=== PATIENT | male | born 1970 | race Caucasian/White ===

== ENCOUNTER 2019-11-02 20:07 | Inpatient (IN) | payer OTHER ==
[~2019-11-02] VITALS: Ht 185.4 cm; Wt 96.0 kg
[2019-11-02] MEDS ORDERED: PANTOPRAZOLE 80 MG in SODIUM CHLORIDE 0.9% 50 ML IVPB ONE (20:58)
[2019-11-02] MEDS ORDERED: SODIUM CHLORIDE 0.9% 1,000ML IVBOLUS ONE (21:00)
[2019-11-02] MEDS ORDERED: PANTOPRAZOLE 80 MG in SODIUM CHLORIDE 0.9% 100 ML IV SCH (21:15)
[2019-11-02 21:19] LABS: MEAN CORPUSCULAR HEMOGLOBIN 30.5 pg (27.5-34.5); MEAN CORPUSCULAR HGB CONC 32.8 g/dL (33.2-36.2); MEAN PLATELET VOLUME 8.3 fL (7.4-10.4); PLATELET COUNT 379 x10^3/uL (130-400); RED BLOOD COUNT 4.82 x10^6/uL (4.38-5.82); RED CELL DISTRIBUTION WIDTH 13.7 % (9.4-14.8)
[2019-11-02 21:29] LABS: INTERNATIONAL NORMALIZED RATIO 0.98 (0.93-1.1); PROTHROMBIN TIME 10.4 Seconds (9.6-11.5)
[2019-11-02 21:30] LABS: ALANINE AMINOTRANSFERASE 38 U/L (12-78); ALBUMIN 3.2 g/dL (3.4-5.0); ANION GAP 10 mmol/L (5-15); CALCIUM 8.6 mg/dL (8.5-10.1); CHLORIDE 107 mmol/L (98-107); CREATININE 1.28 mg/dL (0.7-1.3)
[2019-11-02] MEDS ORDERED: TRANEXAMIC ACID 1,500 MG in SODIUM CHLORIDE 0.9% 100 ML IV ONE (21:30)
[2019-11-02 21:32] LABS: ALKALINE PHOSPHATASE 70 U/L (45-117); BILIRUBIN,TOTAL 0.7 mg/dL (0.2-1.0); TOTAL PROTEIN 6.7 g/dL (6.4-8.2)
[2019-11-02 22:02] LABS: BASOPHILS # (AUTO) 0.02 x10^3/uL (0-0.1); BASOPHILS % (AUTO) 0 % (0-1); EOSINOPHILS # (AUTO) 0.06 x10^3/uL (0-0.4); EOSINOPHILS % (AUTO) 0 % (1-7); LYMPHOCYTES # (AUTO) 1.09 x10^3/uL (1-3.4); LYMPHOCYTES % (AUTO) 5 % (22-44); MD SCAN; MONOCYTES # (AUTO) 0.48 x10^3/uL (0.2-0.8); MONOCYTES % (AUTO) 2 % (2-9); NEUTROPHILS # (AUTO) 19.11 x10^3/uL (1.8-6.8); NEUTROPHILS % (AUTO) 92 % (42-75)
--- NOTE | 2019-11-02 22:09 | NUR ---
PT TO ED WITH C/O RECTAL BLEEDING AND SYNCOPAL EVENT. PT REPORTS HE HAD A COLONOSCOPY THIS MORNING DUE TO FAMILY HX OF COLON CA. PT REPORTS TONIGHT HE WAS ON THE TOILET AND REPORTS A LARGE AMOUNT OF BLOOD FROM THE RECTUM. PT REPORTS SYNCOPAL EVENT AFTER THAT. REPORTS CALLING FRIEND TO TAKE HIM TO THE ER. PT BACK TO ROOM 20 AND PLACED ON GLOBAL VP CREATIVE + CONTENT MARKETING AND CONTINOUS PULSE OX. PT REPORTS HE WAS STARTING TO FEEL BETTER AFTER COMING TO THE ER. BP 90S/60S. EKG COMPLETED AT BEDSIDE AND IV STARTED IN LEFT WRIST. DR. ALSTON TO BEDSIDE TO SEE PT. PT BECAME HYPOTENSIVE AND DIAPHORETIC. PT GIVEN 2L IVF BOLUS AND RAPIDLY TRANSFUSED WITH 2 UNITS OF O NEGATIVE BLOOD. PT RESPONDED WELL TO FLUID AND BLOOD RESUSCITATION. BP AND HR STABLE. PT REPORTS FEELING MUCH BETTER. AWAITING TYPE AND SCREEN AND THEN WILL TRANSFUSE 2 ADDITIONAL UNITS.
[2019-11-02] MEDS ORDERED: ONDANSETRON 2MG/ML, 2ML IV PRN (23:30)
[2019-11-02] MEDS ORDERED: ACETAMINOPHEN 325 MG TABLET PO PRN (23:30)
[2019-11-02] MEDS ORDERED: PIPERACILLIN/TAZO/PMX 3.375GM 50 ML ONE (23:38)
[2019-11-02] MEDS: PIPERACILLIN/TAZO/PMX 3.375GM 50 ML IV SCH (23:52)
[2019-11-02] MEDS: SODIUM CHLORIDE 0.9% 1,000 ML IV SCH (23:52)
--- NOTE | 2019-11-03 00:51 | NUR ---
PT RESTING AT THIS TIME. REMAINS NSR ON PROCESS CONTROL MANAGER WITH BLOOD PRESSURE STABLE. PT DENIES CURRENT NEEDS.
--- NOTE | 2019-11-03 00:52 | NUR ---
REPORT CALLED TO ERLINDA LOMAS ON CCU.
[2019-11-03 01:25] VITALS: BP 115/78
[2019-11-03 04:45] LABS: ALANINE AMINOTRANSFERASE 34 U/L (12-78); ALBUMIN 2.8 g/dL (3.4-5.0); ANION GAP 6 mmol/L (5-15); CALCIUM 7.8 mg/dL (8.5-10.1); CHLORIDE 111 mmol/L (98-107); CREATININE 0.94 mg/dL (0.7-1.3)
[2019-11-03 04:47] LABS: ALKALINE PHOSPHATASE 63 U/L (45-117); BILIRUBIN,TOTAL 0.7 mg/dL (0.2-1.0); TOTAL PROTEIN 5.6 g/dL (6.4-8.2)
[2019-11-03] MEDS: PIPERACILLIN/TAZO/PMX 3.375GM 50 ML IV SCH ×2 (05:00→10:16)
[2019-11-03 06:29] LABS: BASOPHILS # (AUTO) 0.03 x10^3/uL (0-0.1); BASOPHILS % (AUTO) 0 % (0-1); EOSINOPHILS # (AUTO) 0.04 x10^3/uL (0-0.4); EOSINOPHILS % (AUTO) 0 % (1-7); LYMPHOCYTES # (AUTO) 1.75 x10^3/uL (1-3.4); LYMPHOCYTES % (AUTO) 15 % (22-44); MD NO; MEAN CORPUSCULAR HEMOGLOBIN 29.8 pg (27.5-34.5); MEAN CORPUSCULAR VOLUME 90.1 fL (81-97); MEAN PLATELET VOLUME 8.5 fL (7.4-10.4); MONOCYTES # (AUTO) 0.75 x10^3/uL (0.2-0.8); MONOCYTES % (AUTO) 7 % (2-9); NEUTROPHILS % (AUTO) 78 % (42-75); PLATELET COUNT 280 x10^3/uL (130-400); RED BLOOD COUNT 4.48 x10^6/uL (4.38-5.82); RED CELL DISTRIBUTION WIDTH 14.6 % (9.4-14.8)
[2019-11-03] MEDS: SODIUM CHLORIDE 0.9% 1,000 ML IV SCH (09:10)
[2019-11-03] MEDS ORDERED: FENTANYL PF 100 MCG/2ML ONE (10:40)
[2019-11-03] MEDS ORDERED: MIDAZOLAM 1 MG/ML, 5ML ONE (10:40)
[2019-11-03] MEDS ORDERED: EPINEPHRINE SYRINGE 0.1 MG/ML, 10ML ONE (12:18)
[2019-11-03 20:06] VITALS: BP 117/67
[2019-11-04 03:50] VITALS: BP 114/71
[2019-11-04 08:02] VITALS: BP 128/72
== END 2019-11-04 10:12 | disposition home or self-care (01) | DRG 919 ==
LOC: ED 23:01 → EDIP 23:16 → UNDOADMIN 23:16 → CCU 11-03 01:14 → 3N 11-03 20:03 → DCLOUNGE 11-04 10:08
PROVIDERS: ADMIT Hospitalist; ATTEND Internal Medicine
PROC: 3E0G8GC Introduction of Other Therapeutic Substance into Upper GI, Via Natural or Artificial Opening Endoscopic (ICD-10-PCS; 2019-11-03)
PROC: 30233N1 Transfusion of Nonautologous Red Blood Cells into Peripheral Vein, Percutaneous Approach (ICD-10-PCS; 2019-11-03)
PROC: 0W3P8ZZ Control Bleeding in Gastrointestinal Tract, Via Natural or Artificial Opening Endoscopic (ICD-10-PCS; principal; 2019-11-03 11:00)
DX: K91.840 Postprocedural hemorrhage of a digestive system organ or structure following a digestive system procedure (principal); R57.8 Other shock; N17.9 Acute kidney failure, unspecified; D62 Acute posthemorrhagic anemia; Z85.038 Personal history of other malignant neoplasm of large intestine; Y83.8 Other surgical procedures as the cause of abnormal reaction of the patient, or of later complication, without mention of misadventure at the time of the procedure; E86.0 Dehydration; D72.829 Elevated white blood cell count, unspecified; R00.0 Tachycardia, unspecified; I95.9 Hypotension, unspecified; F12.90 Cannabis use, unspecified, uncomplicated; I10 Essential (primary) hypertension; Z80.0 Family history of malignant neoplasm of digestive organs; Z80.42 Family history of malignant neoplasm of prostate
CPT/HCPCS: 36415; 80053; 83605; 83690; 83735; 84145; 85014; 85018; 85025; 85610; 85730; 86850; 86900; 86923; 87040; 87081; 93005; G0378; J2250; J2543; J3010; C9113; J7030; P9016